=== PATIENT | male | born 2000 | race Hispanic/Latino ===

== ENCOUNTER 2020-03-13 06:00 | Day surgery (SDC) | payer OTHER, MEDICAID ==
[2020-03-13] VITALS (10 sets, daily range): BP systolic 102–115; BP diastolic 49–62
[~2020-03-13] VITALS: Ht 180.3 cm; Wt 88.5 kg
[~2020-03-13 06:00] MED LIST: MULT-1192 PO; OMEP20TA2 PO; RISP0.5T50 PO; TOPI15CA11 PO
[2020-03-13] MEDS ORDERED: SODIUM CHLORIDE 0.9% 1000ML 1,000 ML IV ONE (06:21)
[2020-03-13] MEDS ORDERED: MELA10TA7 PO (06:41)
[2020-03-13] MEDS ORDERED: KETAMINE 50MG/ML SYRINGE 50 MG/ML DISP.SYRIN IV ONE (07:14)
[2020-03-13] MEDS ORDERED: GLYCOPYRROLATE 1 MG/5 ML SYRINGE ONE (07:14)
[2020-03-13] MEDS ORDERED: MIDAZOLAM HCL 1 MG/ML 2ML VIAL ONE (07:14)
[2020-03-13] MEDS ORDERED: MIDAZOLAM HCL SYRUP 10 MG/5 ML 5ML BOTTLE ONE (07:32)
[2020-03-13] MEDS ORDERED: PROPOFOL 10 MG/ML 20ML VIAL IV ONE ×4 (07:39→09:17)
[2020-03-13 09:36] LABS: BASOPHILS % (AUTO) 0.3 % (0.0-5.0); EOSINOPHILS % (AUTO) 1.8 % (0.0-8.0); HEMATOCRIT 44.3 % (42-54); LYMPHOCYTES % (AUTO) 21.2 % (21.0-51.0); MEAN CORPUSCULAR HGB CONC 34.1 g/dL (32.0-36.0); MEAN CORPUSCULAR VOLUME 88.1 fL (80-100); NEUTROPHILS % (AUTO) 70.4 % (40.0-77.0); PLATELET COUNT (AUTO) 230 K/uL (130-400); RED BLOOD CELL COUNT(AUTO) 5.03 MIL/uL (4.50-6.20); RED CELL DISTRIBUTION WIDTH 12.2 % (11.0-15.5)
[2020-03-13 09:45] LABS: HEMOGLOBIN A1C 5.2 % (4.0-6.0)
[2020-03-13 10:17] LABS: BILIRUBIN,TOTAL 1.1 mg/dL (0.2-1.0); CREATININE 0.7 mg/dL (0.5-1.5); POTASSIUM 3.7 mmol/L (3.5-5.1); T4 (THYROXINE) 6.3 ug/dL (4.7-13.3); THYROID STIMULATING HORMONE 0.9 uIU/mL (0.36-3.74); TOTAL PROTEIN, SERUM 7.1 g/dL (6.0-8.3)
== END 2020-03-13 10:45 | disposition home or self-care (01) ==
LOC: ENDO 06:00 → DAH 06:00 → ENDO 10:45
PROVIDERS: ATTEND Internal Medicine Gastroenterology
DX: K21.00 Gastro-esophageal reflux disease with esophagitis, without bleeding (principal); K29.70 Gastritis, unspecified, without bleeding; F41.9 Anxiety disorder, unspecified; F84.0 Autistic disorder; F32.9 Major depressive disorder, single episode, unspecified; Z79.899 Other long term (current) drug therapy; Z87.19 Personal history of other diseases of the digestive system; Z98.890 Other specified postprocedural states
CPT/HCPCS: 36415; 43239; 80053; 80061; 80305; 82306; 82607; 82746; 83036; 84436; 84443; 85025; A4215; A4221; A4222; A4223; A4606; A4620; A4663; J2250; J2704 ×4; J3490 ×2; J7030